=== PATIENT | female | born 1950 | race Caucasian/White ===

== ENCOUNTER 2018-06-29 18:45 | Inpatient (IN) | payer MEDICARE ==
[~2018-06-29] VITALS: Ht 167.6 cm; Wt 58.1 kg
[2018-06-30] MEDS ORDERED: LORAZEPAM 0.5 MG TABLET PO PRN (09:30)
[2018-06-30] MEDS ORDERED: TEMAZEPAM 7.5 MG CAPSULE PO PRN (09:30)
[2018-06-30] MEDS ORDERED: ACETAMINOPHEN 325 MG TABLET PO PRN (09:30)
[2018-06-30] MEDS ORDERED: MAGNESIUM HYDROXIDE 30 ML UDC PO PRN (09:30)
[2018-06-30] MEDS ORDERED: MAG HYDROX/AL HYDROX/SIMETH 30 ML UDC PO PRN (09:30)
--- NOTE | 2018-06-30 09:30 | NUR ---
ADMITTED A 67 Y/O FEMALE FROM [facility], ON [address], PER HOLD, PATIENT IS DECOMPENSATING, NOT BATHING, NOT TAKING IN ADEQUATE FOOD, IS NOT ORIENTED TO YEAR, DAY OR CIRCUMSTANCE, FECES UNDER HER NAILS. UPON FACE TO FACE EVALUATION, PATIENT APPEARED ALERT AND ORIENTED X 2, DISHEVELLED, CALM, COOPERATIVE, BODY CHECK DONE, PICTURE DONE, PATIENT UNABLE TO SIGN PAPER WORKS, PATIENT NEEDS FREQUENT REDIRECTION, NO SOB, NO ACUTE DISTRESS, BREATHING EVEN AND UNLABORED, NO S/S OF PAIN AND DISCOMFORT, BELONGINGS INSPECTED FOR CONTRABAND CHECK, PATIENT UNDER THE CARE OF REAL, NOTIFIED DR. ROLAND TO RECONCILE MEDICATION. ALL NEEDS ATTENDED AND MET, PATIENT CONSENTED CUTTING OF HER HAIR, PATIENT TOOK SHOWER, NAILS CUT CONSENTED, PATIENT RIGHTS DISCUSSED. WILL CONTINUE TO MONITOR [id number] FOR SAFETY
[2018-06-30 09:55] VITALS: BP 101/69
[2018-06-30] MEDS ORDERED: BUSP10TA35 PO (09:59)
[2018-06-30] MEDS ORDERED: GABA600T12 PO (10:00)
[2018-06-30] MEDS ORDERED: INVEGA TRINZA (10:02)
[2018-06-30 16:00] VITALS: BP 100/57
[2018-06-30 20:00] VITALS: BP 98/58
[2018-06-30] MEDS: Z GUARD REMEDY 2 OZ OINT TP SCH (21:00)
[2018-07-01 07:16] LABS: BILIRUBIN,TOTAL 0.3 mg/dL (0.2-1.0); CALCIUM, SERUM 8.7 mg/dL (8.5-10.1); CREATININE 0.7 mg/dL (0.6-1.3); POTASSIUM 4.3 mmol/L (3.5-5.1); TOTAL PROTEIN, SERUM 6.4 g/dL (6.4-8.2)
[2018-07-01 08:00] VITALS: BP 100/63
[2018-07-01] MEDS: Z GUARD REMEDY 2 OZ OINT TP SCH ×2 (09:55→22:26)
[2018-07-01] MEDS: NICOTINE PATCH (14MG) 14 MG PATCH.TD24 TD SCH (09:55)
--- NOTE | 2018-07-01 10:14 | NUR ---
SW received a phone call from Cristel, shelter case manager at [facility] [phone] F:[phone] stating that she was the one who placed pt on a hold due to pts concerning functional decline. Cristel stated that pt receives psychiatric treatment at their clinic and is under the care of Psychiatrist Dr. Gamboa. Cristel informed SW that pt receives monthly injections of Invega Sustenna and her last dose was 2 weeks ago. Cristel sated that pt recently has not been responding well to the injections and declined rapidly stating that pt was not taking care of her ADL's and not feeding herself. Cristel has requested a neurological consult as she believes there is some neurological decline that the clinic is not aware about. CHETAN will consult with pts assigned psychiatrist Dr. Long. Addendum: 07/01/18 at 1028 by MARY BENTON [facility] Address: [address], [place] [address]
--- NOTE | 2018-07-01 11:48 | NUR ---
INITIAL DISCHARGE PLAN: Per pts pillowcase cutter Mari at [facility], [facility] Address: [address], [place] [address] . Pt will return to her board and care [address] [place] [phone] . Mari will arrange transportation for pt with 24 hour notice. CHETAN will help form a safe and proper discharge in collaboration with .
[2018-07-01 16:00] VITALS: BP 101/57
[2018-07-01 20:00] VITALS: BP 109/62
--- NOTE | 2018-07-01 20:00 | NUR ---
[facility]PS RN NOTES RECEIVED PTS IN BED AWAKE ALERT AND RESPONSIVE AMBULATORY , NO COMPLAIN OF PAIN V/S STABLE AFEBRILE ,ALL NEEDS ATTENDED TOO DUE MEDS GIVEN .KEPT PTS CLEAN DRY AND COMFORTABLE , NO PABLITO NOTED AT THIS TIME. WILL CONTINUE TO MONITOR PTS.
[2018-07-02 08:00] VITALS: BP 146/86
[2018-07-02] MEDS: NICOTINE PATCH (14MG) 14 MG PATCH.TD24 TD SCH (09:14)
[2018-07-02] MEDS: risperiDONE 1 MG TABLET PO SCH ×2 (09:14→20:18)
[2018-07-02] MEDS: Z GUARD REMEDY 2 OZ OINT TP SCH ×2 (09:17→21:05)
[2018-07-02 16:00] VITALS: BP 100/59
--- NOTE | 2018-07-02 16:16 | NUR ---
quiet,keeps to self,responds when spoken to otherwise,mostly non-verbal.
[2018-07-02 20:00] VITALS: BP 102/62
[2018-07-03 08:00] VITALS: BP 106/61
[2018-07-03] MEDS: NICOTINE PATCH (14MG) 14 MG PATCH.TD24 TD SCH (08:51)
[2018-07-03] MEDS: risperiDONE 1 MG TABLET PO SCH ×2 (08:52→20:42)
[2018-07-03] MEDS: Z GUARD REMEDY 2 OZ OINT TP SCH ×2 (08:52→21:45)
[2018-07-03 16:00] VITALS: BP 113/67
[2018-07-03 20:00] VITALS: BP 99/56
[2018-07-04] VITALS (7 sets, daily range): BP systolic 89–123; BP diastolic 53–80
[2018-07-04] MEDS: Z GUARD REMEDY 2 OZ OINT TP SCH ×2 (09:00→21:16)
[2018-07-04] MEDS: NICOTINE PATCH (14MG) 14 MG PATCH.TD24 TD SCH (09:23)
--- NOTE | 2018-07-04 10:32 | NUR ---
CHETAN received a phone call from Cristel employment case manager at [facility] [phone] F:[phone] requesting updated information for pt. CHETAN provided her with psychiatrist progress note report.
[2018-07-04] MEDS: SERTRALINE HCL 50 MG TABLET PO SCH (12:00)
[2018-07-04] MEDS: risperiDONE 1 MG TABLET PO SCH ×2 (12:00→21:16)
--- NOTE | 2018-07-04 12:00 | NUR ---
1200 MED NOTES. AMY LIPSCOMB OK NOT TO GIVE AM PSYCH MEDS RELATED TO DECREASED BP. FLUIDS AND FOOD ENCOURAGED
[2018-07-05 08:00] VITALS: BP 110/73
[2018-07-05] MEDS: risperiDONE 1 MG TABLET PO SCH ×2 (08:20→21:21)
[2018-07-05] MEDS: SERTRALINE HCL 50 MG TABLET PO SCH (08:20)
[2018-07-05] MEDS: Z GUARD REMEDY 2 OZ OINT TP SCH ×2 (08:23→21:11)
[2018-07-05] MEDS: NICOTINE PATCH (14MG) 14 MG PATCH.TD24 TD SCH (08:23)
[2018-07-05] MEDS ORDERED: SERTRALINE HCL 50 MG TABLET PO SCH (09:00)
[2018-07-05 16:00] VITALS: BP 99/61
[2018-07-05 20:31] VITALS: BP 94/56
[2018-07-06 08:00] VITALS: BP 100/63
[2018-07-06] MEDS: SERTRALINE HCL 50 MG TABLET PO SCH (09:08)
[2018-07-06] MEDS: risperiDONE 1 MG TABLET PO SCH ×2 (09:08→21:13)
[2018-07-06] MEDS: NICOTINE PATCH (14MG) 14 MG PATCH.TD24 TD SCH (09:09)
[2018-07-06] MEDS: Z GUARD REMEDY 2 OZ OINT TP SCH ×2 (09:09→21:13)
[2018-07-06 16:00] VITALS: BP 116/72
[2018-07-06 20:45] VITALS: BP 90/58
[2018-07-07 08:00] VITALS: BP 100/63
[2018-07-07] MEDS: SERTRALINE HCL 50 MG TABLET PO SCH (08:26)
[2018-07-07] MEDS: risperiDONE 1 MG TABLET PO SCH ×2 (08:26→20:49)
[2018-07-07] MEDS: NICOTINE PATCH (14MG) 14 MG PATCH.TD24 TD SCH (08:26)
[2018-07-07] MEDS: Z GUARD REMEDY 2 OZ OINT TP SCH ×2 (10:39→20:49)
[2018-07-07 16:00] VITALS: BP 100/69
[2018-07-07 20:00] VITALS: BP 109/64
[2018-07-08 08:00] VITALS: BP 102/60
[2018-07-08] MEDS: risperiDONE 1 MG TABLET PO SCH ×2 (08:15→21:48)
[2018-07-08] MEDS: NICOTINE PATCH (14MG) 14 MG PATCH.TD24 TD SCH (08:15)
[2018-07-08] MEDS: SERTRALINE HCL 50 MG TABLET PO SCH (08:16)
[2018-07-08] MEDS: Z GUARD REMEDY 2 OZ OINT TP SCH ×2 (08:17→21:37)
--- NOTE | 2018-07-08 09:42 | NUR ---
CHETAN received a phone call from Cristel, assistant case manager at [facility] [phone] F:[phone] requesting discharge information. CHETAN informed her pt is discharging on Wednesday07/11/18. Cristel stated that she will set transportation up with [facility] for 11am.
--- NOTE | 2018-07-08 09:47 | NUR ---
CHETAN emailed and called Ángela Villanueva [phone] to begin Medical application process for pt requested by Cristel pts human services case manager at [facility]. CHETAN left voicemail for request.
[2018-07-08 16:00] VITALS: BP 119/63
[2018-07-08 20:00] VITALS: BP 100/54
--- NOTE | 2018-07-09 04:36 | NUR ---
OFFERED SLEEPING PILL AND REFUSED
[2018-07-09 08:00] VITALS: BP 100/65
[2018-07-09] MEDS: risperiDONE 1 MG TABLET PO SCH ×2 (08:28→21:14)
[2018-07-09] MEDS: SERTRALINE HCL 50 MG TABLET PO SCH (08:28)
[2018-07-09] MEDS: NICOTINE PATCH (14MG) 14 MG PATCH.TD24 TD SCH (08:30)
[2018-07-09] MEDS: Z GUARD REMEDY 2 OZ OINT TP SCH ×2 (08:30→20:30)
[2018-07-09 16:00] VITALS: BP 108/71
[2018-07-09 20:40] VITALS: BP 103/62
[2018-07-10 08:00] VITALS: BP 123/65
[2018-07-10] MEDS: SERTRALINE HCL 50 MG TABLET PO SCH (09:23)
[2018-07-10] MEDS: NICOTINE PATCH (14MG) 14 MG PATCH.TD24 TD SCH (09:24)
[2018-07-10] MEDS: risperiDONE 1 MG TABLET PO SCH ×2 (09:24→21:31)
[2018-07-10] MEDS: Z GUARD REMEDY 2 OZ OINT TP SCH ×2 (09:25→21:32)
[2018-07-10 16:00] VITALS: BP 117/73
[2018-07-10 20:00] VITALS: BP 114/60
[2018-07-10 20:29] VITALS: BP 114/60
[2018-07-11 08:00] VITALS: BP 108/66
[2018-07-11] MEDS: SERTRALINE HCL 50 MG TABLET PO SCH (08:56)
[2018-07-11] MEDS: NICOTINE PATCH (14MG) 14 MG PATCH.TD24 TD SCH (08:56)
[2018-07-11] MEDS: risperiDONE 1 MG TABLET PO SCH (08:56)
--- NOTE | 2018-07-11 09:00 | NUR ---
RN-CO: DR NOBLE GAVE AN ORDER TO DISCHARGE [facility] AND DISCONTINUE HOLD. NOTED. PATIENT REMAIN TO BE CALM AND COOPERATIVE TO CARE. NO ACUTE DISTRESS NOTED. MEDICALLY CLEARED FOR DISCHARGE BY DANIEL DAHL NP. DENIED SUICIDAL AND HOMICIDAL IDEATION. DENIED AUDITORY AND VISUAL HALLUCINATION. SHE WILL BE GOING TO BOARD AND CARE VIA [facility]. PATIENT'S MARKETER [phone] BASHIR WAS NOTIFIED. DISCHARGE PAPERS WERE DISCUSSED TO PATIENT AND SHE VERBALIZED UNDERSTANDING WELL TO THE [facility] ANESTHESIOLOGIST ATTENDING. ALL VALUABLES AND BELONGINGS WERE GIVEN BACK.
[2018-07-11] MEDS: Z GUARD REMEDY 2 OZ OINT TP SCH (09:54)
--- NOTE | 2018-07-11 11:10 | NUR ---
RN-CO: PATIENT WAS ESCORTED BY STAFF IN THE LOBBY.
--- NOTE | 2018-07-11 11:33 | NUR ---
DISCHARGE NOTE: Pt was discharged at 11:00am via [facility] provided by [facility] to [facility] and [address] [address]. Pts complex case manager Mari at [facility] Address: [address] [phone] has been notified. Pts mood was euthymic with congruent affect. Pt denied visual/auditory hallucinations and denied suicidal/homicidal ideations. Pt has a follow up appointment scheduled on Wednesday07/12/18 at 10:15am with Psychiatrist Dr. Chandler [address] [id number] Phone: [phone]. CHETAN faxed clinical information to Mari at [phone]. Pt was given a referral to [facility] Address: [address] [id number] . For smoking cessation, patient was referred to the [employer] and [employer] [id number]. Pt will also participate in a telephone meeting with [employer] [phone] on Thursday July 12, 2018 at 8:00am. The multidisciplinary exitcare form was done, printed, signed, and given to the patient.
== END 2018-07-11 11:10 | disposition home or self-care (01) | DRG 885 ==
LOC: GPS 06-30 08:56
PROVIDERS: ADMIT Psychiatry & Neurology Psychiatry; ATTEND Psychiatry & Neurology Psychiatry
DX: F20.0 Paranoid schizophrenia (principal); F29 Unspecified psychosis not due to a substance or known physiological condition; Z73.6 Limitation of activities due to disability; F32.9 Major depressive disorder, single episode, unspecified; R79.89 Other specified abnormal findings of blood chemistry
CPT/HCPCS: 36415; 80053-TC; 80061-TC; 87081-TC